=== PATIENT | female | born 1940 | race Caucasian/White ===

== ENCOUNTER 2018-04-28 14:02 | Inpatient (IN) | payer OTHER ==
[~2018-04-28] VITALS: Ht 165.1 cm; Wt 54.2 kg
[~2018-04-28 14:02] MED LIST: CITRACAL + D E1 EACH PO; LIPITOR20 MG PO; OMEPRAZOLE40 M1 PO; PAXIL40 MG PO; RELAFEN500 M1 PO; ULTRAM50 MG PO
[2018-04-28 14:29] LABS: BASOPHIL (%) 0.2 % (0-1); EOSINOPHIL (%) 0.2 % (0-5); HEMATOCRIT 35.5 % (36.0-46.0); HEMOGLOBIN 11.7 G/DL (11.9-15.5); IMMATURE GRANULOCYTE (%) 0.4 % (0.0-0.7); LYMPHOCYTE (%) 6.9 % (15-42); LYMPHOCYTE COUNT 1.3 K/uL (1.0-2.8); MCH 30.6 PG (29.0-34.0); MCV 92.9 FL (83-99); MONOCYTE (%) 6.5 % (3-12); MONOCYTE COUNT 1.2 K/uL (0-0.8); NEUTROPHIL (%) 85.8 % (45-76); NEUTROPHIL COUNT 16.1 K/uL (1.8-6.4); PLATELET COUNT 378 K/uL (156-360); RBC DIS.WIDTH-CV 11.9 % (11.8-14.6); RBC DIS.WIDTH-SD 40.8 % (39-53); RED BLOOD COUNT 3.82 M/uL (3.80-5.20); WHITE BLOOD COUNT 18.7 K/uL (4.1-10.2)
[2018-04-28 14:50] LABS: TROP-I INTERPRETATION NEGATIVE; TROPONIN-I < 0.01 ng/mL (0.0-0.30)
[2018-04-28 15:24] LABS: ALBUMIN 3.4 g/dL (3.2-4.8)
[2018-04-28 15:25] LABS: CHLORIDE 97 mEq/L (99-109); POTASSIUM 3.6 mEq/L (3.7-5.4); SODIUM 135 mEq/L (136-147)
[2018-04-28 15:27] LABS: GLUCOSE 148 mg/dL (70-99); TOTAL PROTEIN 6.6 g/dL (6.4-8.3)
[2018-04-28 15:29] LABS: TOTAL BILIRUBIN 0.4 mg/dL (0.0-1.0)
[2018-04-28 15:30] LABS: ALKALINE PHOSPHATASE 85 IU/L (3-129)
[2018-04-28 15:31] LABS: CREATININE 0.9 mg/dL (0.6-1.3); GFR ESTIMATE (CALCULATED) > 59 mL/min/
[2018-04-28 15:32] LABS: AST (GOT) 14 IU/L (2-34); UREA NITROGEN (BUN) 19 mg/dL (9-23)
[2018-04-28 15:34] LABS: ALT (GPT) 14 IU/L (3-49)
[2018-04-28 15:49] LABS: APPEARANCE SL.HAZY ((CLEAR)); BILIRUBIN NEGATIVE; BLOOD SMALL; COLOR YELLOW ((YELLOW)); GLUCOSE (STRIP) NEGATIVE; KETONES NEGATIVE; LEUKOCYTES NEGATIVE; NITRITE NEGATIVE; PROTEIN (STRIP) 30
[2018-04-28 16:28] LABS: RED BLOOD CELLS 0-5 /HPF (0-5); WHITE BLOOD CELLS 0-5 /HPF (0-5)
[2018-04-28 16:29] LABS: BACTERIA RARE /HPF; EPITHELIAL CELLS RARE /HPF; MUCUS 3+ /LPF; UCUL ADDED? NO
[2018-04-28 16:30] LABS: HYALINE CASTS 0-5 /LPF
[2018-04-28] MEDS ORDERED: HYDROCHLOROTH12.5 M3 PO (18:36)
[2018-04-28] MEDS ORDERED: DONEPEZIL HCL10 MG PO (18:37)
[2018-04-28] MEDS ORDERED: LISINOPRIL-HCT1 EACH PO (18:37)
[2018-04-28] MEDS ORDERED: ONDANSETRON HCL4 MG PO (18:37)
[2018-04-28] MEDS ORDERED: TYLENOL REGULA325 MG PO (18:38)
[2018-04-28 19:27] LABS: CARCINOEMBR.ANTIGEN 1.9 NG/ML
[2018-04-28 20:02] LABS: PREALBUMIN 4.3 mg/dL (10-40)
[2018-04-28 22:39] VITALS: BP 133/62
[2018-04-29 03:32] VITALS: BP 128/65
[2018-04-29 06:30] LABS: HEMATOCRIT 40.3 % (36.0-46.0); HEMOGLOBIN 12.7 G/DL (11.9-15.5); MCH 29.2 PG (29.0-34.0); MCHC 31.5 G/DL (30.0-36.0); MCV 92.6 FL (83-99); PLATELET COUNT 421 K/uL (156-360); RBC DIS.WIDTH-CV 11.8 % (11.8-14.6); RBC DIS.WIDTH-SD 40.3 % (39-53); RED BLOOD COUNT 4.35 M/uL (3.80-5.20); WHITE BLOOD COUNT 15.6 K/uL (4.1-10.2)
[2018-04-29 06:52] LABS: CHLORIDE 100 MEQ/L (99-109); CREATININE 0.7 MG/DL (0.6-1.3); GFR ESTIMATE (CALCULATED) > 59 mL/min/; GLUCOSE 181 mg/dL (70-99); POTASSIUM 4.2 MEQ/L (3.7-5.4); SODIUM 137 MEQ/L (136-147); UREA NITROGEN (BUN) 15 mg/dL (9-23)
[2018-04-29 07:41] VITALS: BP 120/57
[2018-04-29 10:42] LABS: APPEARANCE CLOUDY ((CLEAR)); BILIRUBIN NEGATIVE; BLOOD MODERATE; COLOR YELLOW ((YELLOW)); GLUCOSE (STRIP) NEGATIVE; KETONES NEGATIVE; LEUKOCYTES SMALL; NITRITE NEGATIVE; PROTEIN (STRIP) 100; SPECIFIC GRAVITY 1.033 (1.000-1.030); UROBILINOGEN 0.2 MG/DL (0.2-1.0)
[2018-04-29 11:17] LABS: BACTERIA 2+ /HPF; EPITHELIAL CELLS 1+ /HPF; HYALINE CASTS 0-5 /LPF; MUCUS 2+ /LPF; RED BLOOD CELLS 20-30 /HPF (0-5); UCUL ADDED? YES
[2018-04-29 11:30] VITALS: BP 115/57
[2018-04-29 15:46] VITALS: BP 97/53
[2018-04-29 18:57] VITALS: BP 108/58
[2018-04-29 20:03] VITALS: BP 113/56
[2018-04-30 00:14] VITALS: BP 119/60
[2018-04-30 03:49] VITALS: BP 128/64
[2018-04-30 07:16] LABS: MCH 29.3 PG (29.0-34.0); MCHC 31.2 G/DL (30.0-36.0); MCV 93.8 FL (83-99); PLATELET COUNT 346 K/uL (156-360); RBC DIS.WIDTH-SD 41.3 % (39-53); RED BLOOD COUNT 3.52 M/uL (3.80-5.20); WHITE BLOOD COUNT 12.4 K/uL (4.1-10.2)
[2018-04-30 07:17] LABS: HEMOGLOBIN 10.3 G/DL (11.9-15.5)
[2018-04-30 07:44] VITALS: BP 174/75
[2018-04-30 09:40] LABS: CHLORIDE 108 MEQ/L (99-109); CREATININE 0.7 MG/DL (0.6-1.3); GFR ESTIMATE (CALCULATED) > 59 mL/min/; GLUCOSE 141 mg/dL (70-99); POTASSIUM 4.4 MEQ/L (3.7-5.4); UREA NITROGEN (BUN) 10 mg/dL (9-23)
[2018-04-30 09:47] LABS: SODIUM 145 MEQ/L (136-147)
[2018-04-30 11:20] VITALS: BP 106/67
[2018-04-30 15:48] VITALS: BP 145/67
[2018-04-30 23:30] VITALS: BP 138/65
[2018-05-01 05:52] LABS: HEMATOCRIT 30.7 % (36.0-46.0); HEMOGLOBIN 9.8 G/DL (11.9-15.5); MCH 29.9 PG (29.0-34.0); MCHC 31.9 G/DL (30.0-36.0); MCV 93.6 FL (83-99); PLATELET COUNT 333 K/uL (156-360); RBC DIS.WIDTH-CV 11.9 % (11.8-14.6); RBC DIS.WIDTH-SD 41.5 % (39-53); RED BLOOD COUNT 3.28 M/uL (3.80-5.20); WHITE BLOOD COUNT 10.9 K/uL (4.1-10.2)
[2018-05-01 06:08] LABS: C DIFF TOXIN NEGATIVE (NEGATIVE)
[2018-05-01 06:28] LABS: CHLORIDE 105 MEQ/L (99-109); CREATININE 0.7 MG/DL (0.6-1.3); GFR ESTIMATE (CALCULATED) > 59 mL/min/; POTASSIUM 3.9 MEQ/L (3.7-5.4); SODIUM 141 MEQ/L (136-147); UREA NITROGEN (BUN) 10 mg/dL (9-23)
[2018-05-01 06:30] LABS: GLUCOSE 83 mg/dL (70-99)
[2018-05-01 08:28] VITALS: BP 131/50
[2018-05-01 11:36] VITALS: BP 117/57
[2018-05-01] MEDS ORDERED: FLORASTOR250 MG PO (11:42)
[2018-05-01] MEDS ORDERED: BACTRIM,SEPT1 TABLET PO (11:42)
[2018-05-01] MEDS ORDERED: ROXICODONE5 MG PO (11:42)
[2018-05-01] MEDS ORDERED: FLAGYL500 MG PO (11:42)
== END 2018-05-01 15:00 | disposition home health service (06) | DRG 330 ==
LOC: EME 14:02 → SDC 19:42 → EME 19:42 → 2EAST 21:01 → 2SOUTH 21:01 → CANRESERV 21:55 → ENRESERV 21:55 → 2EAST 22:22
PROVIDERS: Emergency Medicine; Surgery
PROC: 0DTF0ZZ Resection of Right Large Intestine, Open Approach (ICD-10-PCS; principal; 2018-04-28)
DX: K65.1 Peritoneal abscess (principal); K21.9 Gastro-esophageal reflux disease without esophagitis; I10 Essential (primary) hypertension; E78.5 Hyperlipidemia, unspecified; F17.210 Nicotine dependence, cigarettes, uncomplicated; F03.90 Unspecified dementia, unspecified severity, without behavioral disturbance, psychotic disturbance, mood disturbance, and anxiety; R18.8 Other ascites; F32.9 Major depressive disorder, single episode, unspecified; F41.9 Anxiety disorder, unspecified
CPT/HCPCS: 71045; 74177; 80048; 80053; 81003; 82378; 83735; 84134; 84484; 85025; 85027; 87070; 87075; 87076; 87077; 87086; 87185; 87186; 87205; 87493; 88307; 93005; 99281; 99285; J0131; J0696; J1170; J1644; J2250; J2405; J2543; J2710; J3010; J7030; J7040; J7050; J7643; S0030; S0074